=== PATIENT | female | born 1980 | race Caucasian/White ===

== ENCOUNTER 2017-02-05 19:19 | Emergency (ER) | payer BC ==
[~2017-02-05] VITALS: Ht 170.1 cm; Wt 118.4 kg
[~2017-02-05 19:19] MED LIST: CIPRO250 MG PO; LASIX20 MG PO; Orphenadrine C100 MG PO; WELLBUTRIN100 M1 PO; ZOLOFT25 MG PO
[2017-02-05 19:40] LABS: BASO % 0.3 % (0.0-1.0); EOS # 0.2 10*3/uL (0.0-0.4); EOS % 1.9 % (1.0-4.0); HEMATOCRIT 37.2 % (37.0-47.0); HEMOGLOBIN 12.2 g/dl (12.0-16.0); LYMPH # 2.8 10*3/uL (1.3-4.4); MEAN CORPUSCULAR HGB 29.8 pg (27.0-31.0); MEAN CORPUSCULAR HGB CONC 32.8 g/dl (33.0-37.0); MEAN PLATELET VOLUME 10.6 fl (9.6-12.3); NEUT # 8.1 10*3/uL (2.3-7.9); NEUT % 66.4 % (47.0-73.0); PLATELET COUNT AUTOMATED 304 10*3/uL (130-400); RED BLOOD COUNT 4.09 10*6/uL (4.10-5.10); RED CELL DISTRI WIDTH 13.1 % (0-14.5); WHITE BLOOD COUNT 12.1 10*3/uL (4.8-10.8)
[2017-02-05 19:59] LABS: ACT PARTIAL THROMBO TIME 23.9 SECONDS (20.8-31.5); INTERNATIONAL NORM RATIO 0.9 (2.0-3.5)
[2017-02-05 20:13] LABS: ALBUMIN 3.5 gm/dl (3.1-4.5); ALKALINE PHOSPHATASE 105 U/L (45-117); BUN 11 mg/dl (7-24); CHLORIDE 101 mmol/L (98-107); CREATININE 0.83 mg/dL (0.55-1.02); MAGNESIUM 2.1 mg/dL (1.5-2.1); POTASSIUM 4.6 mmol/L (3.5-5.1); SGOT/AST 37 IU/L (3-35); SGPT/ALT 26 U/L (12-78); SODIUM 138 mmol/L (136-145)
[2017-02-05 20:15] LABS: TROPONIN I < 0.015 ng/ml (<0.045)
[2017-02-05] MEDS ORDERED: PROTONIX40 MG PO (21:42)
== END 2017-02-05 21:33 | disposition home or self-care (01) ==
LOC: ED 19:19
PROVIDERS: Emergency Medicine Emergency Medical Services
DX: R07.89 Other chest pain (principal); K21.9 Gastro-esophageal reflux disease without esophagitis; Z98.890 Other specified postprocedural states; Z79.899 Other long term (current) drug therapy; Z91.041 Radiographic dye allergy status

== ENCOUNTER → 2017-03-26 | Day surgery (SDC) | payer BC ==
[~2017-03-26] VITALS: Ht 170.1 cm; Wt 117.9 kg
[~2017-03-26] MED LIST changes: +DICYCLOMINE HCL10 MG PO; +LASIX10 MG/ML PO; +PROTONIX40 MG PO
--- NOTE | ~2017-03-26 | O ---
[place], [place] OPERATIVE NOTE NAME: VAL GUAJARDO UNIT #: [id number] ROOM: [facility] BIRTHDATE: [birth year] DOS: 03/26/2017 INDICATIONS: This is a 36-year-old patient who presented with chief complaint of atypical chest pain, cardiac enzymes have been negative, workup was done by Dr. Lam. ALLERGIES: IVP DYE. FAMILY HISTORY: Grandfather with colonic carcinoma and Crohn's. PAST SURGICAL HISTORY: Cholecystectomy. PAST MEDICAL HISTORY: Unremarkable. SOCIAL HISTORY: Nonsmoker and social alcohol consumer. The patient has been experiencing diarrhea, alternating with constipation, diarrhea dominant. PROCEDURE: Today's procedure part of investigation is colonoscopy and panendoscopy. PREMEDICATION: Versed and Diprivan. SCOPE: Olympus forward-viewing gastroscope Q10 video. REPORT: After putting the patient in the left lateral position and after application of lubricant through the scope, the scope was introduced, thereafter under direct visualization, I advanced through the length of the esophagus without difficulty. Gastric pouch was entered. A very small hiatal hernia was noticed. Gastric pouch was now entered. Gastritis seen. Antrum was biopsied. Duodenal bulb, second and third part within normal limits. The patient was gradually extubated and tolerated the procedure well. IMPRESSION: Very small hiatal hernia, gastritis. PLAN AND DISCUSSION: We are going to continue with Protonix 40 mg daily, Gaviscon as antacid of choice to be taken 1 at bedtime, elevation of the head of the bed 6 inches all time otherwise, abstinence from solid food ingestion 5 hours prior to retiring, avoiding fatty food avoiding heavy carbohydrates. We are going to proceed with colonoscopic evaluation as well. COLONOSCOPY REPORT INDICATIONS: This is a 36-year-old patient who presented with chief complaint of epigastric abdominal pain, change in bowel habit, constipation, diarrhea. PROCEDURE: Today's procedure part of investigation is colonoscopy. PREMEDICATION: Versed and Diprivan. SCOPE: Olympus folding colonoscope 10L video. [place], [place] OPERATIVE NOTE NAME: VAL GUAJARDO UNIT #: [id number] ROOM: [facility] BIRTHDATE: [birth year] REPORT: After putting the patient in the left lateral position and after application of lubricant through rectal pouch and digital examination, scope was introduced. Thereafter, under direct visualization, I advanced through the length of colon without difficulty. Base of the cecum explored, appendiceal orifice identified, and ileocecal valve was defined. No acute pathology identified. Air was suctioned out. The patient was extubated, tolerated the procedure well. IMPRESSION: Normal colonoscopic examination. PLAN AND DISCUSSION: This patient has an element of irritable bowel syndrome, diarrhea dominant, we are going to treat her with ____ 10 mg 1 daily and clinical reassess. DEMI ZAMARRIPA MD CM:OPRECORD:OPERATIVE NOTE [id number] DEMI ZAMARRIPA MD 03/26/17 1420 interface
[2017-03-26 11:15] VITALS: BP 122/70
[2017-03-26 13:55] VITALS: BP 98/51
[2017-03-26 14:10] VITALS: BP 100/54
[2017-03-26 14:24] VITALS: BP 98/52
== END | disposition home or self-care (01) ==
LOC: SDC 03-21 11:00
DX: K29.50 Unspecified chronic gastritis without bleeding (principal); K44.9 Diaphragmatic hernia without obstruction or gangrene; K21.9 Gastro-esophageal reflux disease without esophagitis; F41.9 Anxiety disorder, unspecified; F32.9 Major depressive disorder, single episode, unspecified; Z98.890 Other specified postprocedural states; Z90.49 Acquired absence of other specified parts of digestive tract; Z80.0 Family history of malignant neoplasm of digestive organs; R19.7 Diarrhea, unspecified; R19.4 Change in bowel habit

== ENCOUNTER → 2017-06-21 | Outpatient (CLI) | payer BC | END | disposition home or self-care (01) | LOC: LAB 06-18 13:45 | DX: R19.7 Diarrhea, unspecified (principal) ==

== ENCOUNTER 2017-08-04 16:26 | Emergency (ER) | payer BC ==
[~2017-08-04] VITALS: Wt 120.2 kg
[2017-08-04 17:16] LABS: BASO % 0.4 % (0.0-1.0); EOS # 0.2 10*3/uL (0.0-0.4); EOS % 2.1 % (1.0-4.0); HEMATOCRIT 40.2 % (37.0-47.0); HEMOGLOBIN 13.3 g/dl (12.0-16.0); LYMPH # 2.4 10*3/uL (1.3-4.4); MEAN CELL VOLUME 88.5 fl (81.0-99.0); MEAN CORPUSCULAR HGB 29.3 pg (27.0-31.0); MEAN CORPUSCULAR HGB CONC 33.1 g/dl (33.0-37.0); MEAN PLATELET VOLUME 10.4 fl (9.6-12.3); MONO % 9.3 % (3.0-9.0); NEUT # 7.3 10*3/uL (2.3-7.9); NEUT % 65.8 % (47.0-73.0); PLATELET COUNT AUTOMATED 296 10*3/uL (130-400); RED BLOOD COUNT 4.54 10*6/uL (4.10-5.10); RED CELL DISTRI WIDTH 13.7 % (0-14.5); WHITE BLOOD COUNT 11.1 10*3/uL (4.8-10.8)
[2017-08-04 17:31] LABS: ALBUMIN 3.7 gm/dl (3.1-4.5); ALKALINE PHOSPHATASE 105 U/L (45-117); BUN 10 mg/dl (7-24); CHLORIDE 101 mmol/L (98-107); CREATININE 0.84 mg/dL (0.55-1.02); POTASSIUM 3.8 mmol/L (3.5-5.1); SGOT/AST 17 IU/L (3-35); SGPT/ALT 31 U/L (12-78); SODIUM 138 mmol/L (136-145)
[2017-08-04 18:19] LABS: BILIRUBIN NEGATIVE (NEGATIVE); BLOOD NEGATIVE (NEGATIVE); CLARITY CLEAR (CLEAR); COLOR YELLOW (YELLOW); GLUCOSE NEGATIVE (NEGATIVE); KETONE NEGATIVE (NEGATIVE); LEUKO ESTERASE NEGATIVE (NEGATIVE); NITRITE NEGATIVE (NEGATIVE); SPECIFIC GRAVITY <= 1.005 (1.005-1.030); UROBILINOGEN 0.2 E.U./dl (0.2-1.0)
[2017-08-04 18:24] LABS: BACTERIA 2+; RBC 0-2 rbc/hpf (0-2)
== END 2017-08-04 18:47 | disposition home or self-care (01) ==
LOC: ED 16:26
PROVIDERS: Nurse Practitioner Family
DX: R51 Headache (principal); K21.9 Gastro-esophageal reflux disease without esophagitis; Z98.890 Other specified postprocedural states; Z98.51 Tubal ligation status; Z79.899 Other long term (current) drug therapy; Z91.041 Radiographic dye allergy status

== ENCOUNTER → 2019-06-28 | Outpatient (CLI) | payer BC | END | disposition home or self-care (01) | LOC: RAD 12:18 | DX: R06.2 Wheezing (principal) ==

== ENCOUNTER → 2020-04-14 | Outpatient (CLI) | payer BC | END | disposition home or self-care (01) | LOC: COVID19 08:04 | PROVIDERS: ATTEND Family Medicine | DX: Z20.828 Contact with and (suspected) exposure to other viral communicable diseases (principal) ==

== ENCOUNTER → 2021-12-11 | Outpatient (CLI) | payer OTHER | END | disposition home or self-care (01) | LOC: MAMMO 13:00 | PROVIDERS: ATTEND Obstetrics & Gynecology | DX: N63.10 Unspecified lump in the right breast, unspecified quadrant (principal); R92.2 Inconclusive mammogram; Z80.3 Family history of malignant neoplasm of breast ==